=== PATIENT | male | born 1935 | race Caucasian/White ===

== ENCOUNTER 2018-03-30 15:52 | Emergency (ER) | payer MEDICARE, OTHER ==
[2018-03-30] MEDS ORDERED: TETANUS/DIPHTHERIA/PERTUSSIS 0.5 ML SYRINGE IM ONE (16:13)
--- NOTE | 2018-03-30 16:24 | ED Physician Documentation ---
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 He denies any other injuries. He is uncertain of his last tetanus booster. Past medical history is significant for prostate cancer with bony metastases. He underwent his last chemotherapy 6 weeks ago. Review of Systems Constitutional: denies: Fever Respiratory: denies: Dyspnea GI: denies: Nausea, Vomiting Skin: reports: Laceration (s) Neurologic: denies: Focal weakness, Numbness PD PAST MEDICAL HISTORY - Past Medical History Past Medical History: Yes Cardiovascular: High cholesterol : Other Other Past Medical History: Prostate cancer with METs - Past Surgical History Past Surgical History: Yes - Present Medications Home Medications: Ambulatory Orders Medication Instructions Recorded Confirmed Atorvastatin [Lipitor] 03/30/18 Leuprolide [Lupron] 03/30/18 - Allergies Allergies/Adverse Reactions: Allergies Allergy/AdvReac Type Severity Reaction Status Date / Time No Known Drug Allergies Allergy Verified 03/30/18 16:00 - Social History Does the pt smoke?: No Smoking Status: Never smoker Does the pt drink ETOH?: Yes ETOH Use: Wine Does the pt have substance abuse?: No - Immunizations Immunizations are current?: No Immunizations: TDAP >10years/unknown PD ED PE NORMAL - Vitals Vital signs reviewed: Yes (normal) - General General: Alert and oriented X 3, Well developed/nourished - HEENT HEENT: Atraumatic - Respiratory Respiratory: No respiratory distress - Derm Derm: No rash - Extremities Extremities: Other (There is a 1.5 cm irregular laceration, with flap, over the dorsum of his left index finger distal to the PIP joint. He has full flexion and extension at the DIP, PIP, and MCP joints against resistance. Distal neurovascular is intact.) - Neuro Neuro: Alert and oriented X 3, No motor deficit, No sensory deficit Results - Vitals Vitals: Oxygen O2 Source Room air Procedures - Laceration (location) left index finger Length in cm: 1.5 Wound type: Irregular, Flap, Into subcut fat Neurovascular status: Sensory intact, Motor intact, Vascular intact Tendon involvement: Tendon intact Anesthesia: Lidocaine 1% with epi Wound Preparation: Hibiclens, Irrigated copiously NS, Wound explored, To the base. No: FB identified Skin layer closure: Nylon, Interrupted, Size #-0 - enter number (5), Sutures - enter # (7) Other: Patient tolerated well, No complications, Neurovascular intact, Dressing applied, Tetanus booster given Complexity: Simple PD MEDICAL DECISION MAKING - ED course Complexity details: considered differential, d/w patient, d/w family ED course: The patient's presentation is significant for laceration to the left index finger, with some loss of tissue due to the mechanism of injury: grinding wheel. Treatment in the emergency department included digital block anesthesia, thorough cleaning of the wound, and repair with 5-0 nylon simple sutures. Antibiotic ointment and tube gauze dressing was applied. Tetanus booster was administered. I discussed with the patient and his family the expected course of injury, wound care and timing for suture removal, as well as potentially worrisome signs or symptoms that should prompt reevaluation in the emergency department. - Sepsis Event Vital Signs: Oxygen O2 Source Room air Departure - Departure Disposition: 01 Home, Self Care Clinical Impression: Finger laceration Qualifiers: Encounter type: initial encounter Finger: index finger Damage to nail status: without damage Foreign body presence: without foreign body Laterality: left Qualified Code(s): S61.211A - Laceration without foreign body of left index finger without damage to nail, initial encounter Condition: Stable Instructions: ED Laceration Hand Comments: Keep the wound clean, and apply antibiotic ointment daily. He can use Tylenol or ibuprofen if needed for discomfort. Follow-up for suture removal in about 12 days. Return to the emergency department sooner if you develop any sign of infection, or otherwise worsening symptoms. Discharge Date/Time: 03/30/18 17:26
[2018-03-30] MEDS ORDERED: BACITRACIN OINT TOP STA (16:46)
[2018-03-30 17:28] VITALS: BP 112/70
== END 2018-03-30 17:26 | disposition home or self-care (01) ==
LOC: ED 15:52
DX: S61.211A Laceration without foreign body of left index finger without damage to nail, initial encounter (principal); W29.8XXA Contact with other powered hand tools and household machinery, initial encounter; Y92.009 Unspecified place in unspecified non-institutional (private) residence as the place of occurrence of the external cause; Z79.899 Other long term (current) drug therapy
CPT/HCPCS: 12001; 90471; 99282; 99283